=== PATIENT | male | born 1950 | race Caucasian/White ===

== ENCOUNTER → 2017-09-22 | Day surgery (SDC) | payer MEDICARE, OTHER ==
[~2017-09-22] MED LIST: ATOR40TA49 PO; COZA50TA PO; DEPA500T OR; GLUCTAB PO; IRONCAP2 PO; LACTATED RINGER'S 1000 ML INJ 1,000 ML ONE; METO25TA6 PO; MOTI25CH PO; MULTTAB50 PO; PLAV75TA PO; PROPOFOL 200 MG/20 ML AMP IV ONE; PROZ20CA11 PO; ST JTAB PO; ZITH250T PO
--- NOTE | 2017-09-22 11:12 | GIPROC ---
[facility] [address] [facility] [place], [address] EGD PROCEDURE REPORT EXAM DATE: 09/22/2017 PATIENT NAME: Jose Newsome MR #: [id number] BIRTHDATE: 1950 ATTENDING: Nasrin Vitale MD ORDER #: [id number] LIMNOLOGIST: STATUS: outpatient INDICATIONS: The patient is a 67 yr old male here for an EGD due to history of esophageal reflux PROCEDURE PERFORMED: EGD w/ biopsy MEDICATIONS: None and Per Anesthesia. TOPICAL ANESTHETIC: none CONSENT: The patient understands the risks and benefits of the procedure and understands that these risks include, but are not limited to: sedation, allergic reaction, infection, perforation and/or bleeding. Alternative means of evaluation and treatment include, among others: physical exam, x-rays, and/or surgical intervention. The patient elects to proceed with this endoscopic procedure. medical equipment was checked for proper function. Hand hygiene and appropriate measures for infection prevention was taken. After the risks, benefits and alternatives of the procedure were thoroughly explained, Informed consent was verified, confirmed and timeout was successfully executed by the treatment team. The patient was anesthetized with topical anesthesia and the EC-3890Li ([id number]) endoscope was introduced through the mouth and advanced to the second portion of the duodenum. Retroflexed views revealed no abnormalities The gastroscope was then slowly withdrawn and removed. Normal exam, Bx from the distal esophagus was done to r/o microscopic esophagitis. ADVERSE EVENTS: There were no complications. IMPRESSIONS: 1. Normal exam, Bx from the distal esophagus was done to r/o microscopic esophagitis 2. Retroflexed views revealed no abnormalities RECOMMENDATIONS: 1. Await biopsy results. Biopsy results will not be ready for 7-10 days. If you don't hear from us in two weeks, call our office for biopsy results. 2. Anti-reflux regimen 3. Continue PPI PATIENT CONDITION: stable DISPOSITION: Home REPEAT EXAM: Return as needed for EGD Nasrin Vitale MD eSigned: Nasrin Vitale MD 09/22/2017 11:12 AM cc: Jo Lucio M.D.
--- NOTE | 2017-09-22 11:15 | GIPROC ---
[facility] [address] [facility], [address] COLONOSCOPY PROCEDURE REPORT EXAM DATE: 09/22/2017 PATIENT NAME: Jose Newsome MR #: [id number] BIRTHDATE: 1950 ENDOSCOPIST: Nasrin Vitale MD ORDER #: [id number] RO[address] MACHINERY INSPECTOR: STATUS: outpatient INDICATIONS: The patient is a 67 yr old male here for a colonoscopy due to high risk patient with personal history of colonic polyps PROCEDURE PERFORMED: Colonoscopy, surveillance MEDICATIONS: None and Per Anesthesia. PREP QUALITY: 15 % obscured ESTIMATED BLOOD LOSS: None CONSENT: The patient understands the risks and benefits of the procedure and understands that these risks include, but are not limited to: sedation, allergic reaction, infection, perforation and/or bleeding. Alternative means of evaluation and treatment include, among others: physical exam, x-rays, and/or surgical intervention. The patient elects to proceed with this endoscopic procedure. medical equipment was checked for proper function. Hand hygiene and appropriate measures for infection prevention was taken. After the risks, benefits and alternatives of the procedure were thoroughly explained, Informed consent was verified, confirmed and timeout was successfully executed by the treatment team. A digital exam revealed no abnormalities of the rectum The EC-[id number] ([id number]) endoscope was introduced through the anus and advanced to the cecum, which was identified by both the appendix and ileocecal valve. The instrument was then slowly withdrawn as the colon was fully examined. COLON FINDINGS: Some stool throughout the colon. The colonic mucosa appeared normal. The colon mucosa was otherwise normal. Retroflexed views revealed small internal hemorrhoids The scope was then completely withdrawn from the patient and the procedure terminated. ADVERSE EVENTS: There were no complications. IMPRESSIONS: 1. Some stool throughout the colon 2. The colonic mucosa appeared normal 3. The colon mucosa was otherwise normal 4. Retroflexed views revealed small internal hemorrhoids 5. Revealed no abnormalities of the rectum RECOMMENDATIONS: 1. Yearly hemoccult 2. High fiber diet RECALL: Return 1 year Colonoscopy longer prep Nasrin Vitale MD eSigned: Nasrin Vitale MD 09/22/2017 11:15 AM cc: Jo Lucio M.D.
== END | disposition home or self-care (01) ==
LOC: ESDC 07:30
PROVIDERS: ATTEND Hospitalist
DX: Z12.11 Encounter for screening for malignant neoplasm of colon (principal); Z86.010 Personal history of colon polyps; K64.8 Other hemorrhoids; K21.9 Gastro-esophageal reflux disease without esophagitis
CPT/HCPCS: 00740; 00810; 43239; 45378; 88305; J3010; J7120